=== PATIENT | female | born 1980 | race Caucasian/White ===

== ENCOUNTER 2018-02-26 13:00 | Inpatient (IN) | payer OTHER ==
[~2018-02-26] VITALS: Ht 162.6 cm; Wt 99.8 kg
== END 2018-03-19 16:28 | DRG 766 ==
LOC: OB/GYN 03-15 14:05 → LDR 03-15 14:05 → OB/GYN 03-16 18:37
PROC: 10D00Z1 Extraction of Products of Conception, Low, Open Approach (ICD-10-PCS; principal; 2018-03-17)
PROC: 10907ZC Drainage of Amniotic Fluid, Therapeutic from Products of Conception, Via Natural or Artificial Opening (ICD-10-PCS; 2018-03-17)
PROC: 4A033R1 Measurement of Arterial Saturation, Peripheral, Percutaneous Approach (ICD-10-PCS; 2018-03-17)
PROC: 4A1HXCZ Monitoring of Products of Conception, Cardiac Rate, External Approach (ICD-10-PCS; 2018-03-17)
DX: O65.4 Obstructed labor due to fetopelvic disproportion, unspecified (principal); O69.1XX0 Labor and delivery complicated by cord around neck, with compression, not applicable or unspecified; O69.89X0 Labor and delivery complicated by other cord complications, not applicable or unspecified; Z37.0 Single live birth; O09.513 Supervision of elderly primigravida, third trimester; Z3A.40 40 weeks gestation of pregnancy

== ENCOUNTER 2018-03-15 10:53 | Outpatient (CLI) | payer OTHER | END 2018-03-15 14:04 | disposition still patient (30) | LOC: NST 10:53 | DX: Z34.83 Encounter for supervision of other normal pregnancy, third trimester (principal) ==